=== PATIENT | male | born 1970 | race Caucasian/White ===

== ENCOUNTER 2022-10-21 16:56 | Emergency (ER) | payer MEDICAID ==
[~2022-10-21] VITALS: Ht 162.6 cm; Wt 63.6 kg
[2022-10-21 17:50] VITALS: BP 171/101; PULSE 79; RESP 16; TEMP 98.6; O2SAT 100
[2022-10-21] MEDS ORDERED: TETanus/Pertussis (Acell)/Diphther VAC/PF (Tdap-Adult) 0.5ml syringe IMVAC ONE (19:25)
[2022-10-21] MEDS ORDERED: SULF1TAB49 PO (19:26)
--- NOTE | 2022-10-21 19:41 | NUR ---
Pt with epsiode of vomiting. Zofran has been ordered. Pt repeatedly instructed to use emesis bag however, pt continue to vomit on the floor.
[2022-10-21] MEDS ORDERED: ondansetron 4mg rapidly disintigrating tab PO ONE (19:45)
--- NOTE | 2022-10-21 20:13 | NUR ---
[facility] called, 45 minute ETA.
== END 2022-10-21 20:16 | disposition home or self-care (01) ==
LOC: ER 16:56
DX: L02.611 Cutaneous abscess of right foot (principal); K21.9 Gastro-esophageal reflux disease without esophagitis; F17.200 Nicotine dependence, unspecified, uncomplicated
CPT/HCPCS: 10060; 87070; 90471; 90715; 99283; L4360; 87077; 87186

== ENCOUNTER 2024-01-18 12:31 | Emergency (ER) | payer MEDICAID ==
[~2024-01-18] VITALS: Ht 162.6 cm; Wt 81.1 kg
[2024-01-18] MEDS: normal saline 1000ML IV soln IV ONE (12:55)
[2024-01-18 14:04] LABS: ALBUMIN 2.9 G/DL (3.4-5.0); ANION GAP 6 (8-16); BLOOD UREA NITROGEN 13 MG/DL (7-18); BUN/CREATININE RATIO 12.4 (10.0-20.0); CALCIUM 8.3 MG/DL (8.5-10.1); CHLORIDE 105 MMOL/L (99-107); CREATININE 1.05 MG/DL (0.60-1.10); ETHANOL < 10 MG/DL (<10); GLUCOSE 135 MG/DL (70-104); POTASSIUM 4.2 MMOL/L (3.5-5.1); SODIUM 142 MMOL/L (135-145); TOTAL CARBON DIOXIDE 30.6 MMOL/L (24-32); eCRCL 68 ML/MIN; eGFR 74 ML/MIN
[2024-01-18 14:05] LABS: BASOPHILS % (AUTO) 0.3 % (0-1); EOSINOPHILS % (AUTO) 0.4 % (0-6); HEMATOCRIT 38.3 % (42.0-52.0); HEMOGLOBIN 12.5 g/dl (14.0-17.9); LYMPHOCYTES # (AUTO) 0.9 X10'3 (1.1-4.8); LYMPHOCYTES % (AUTO) 7.3 % (21-51); MEAN CORPUSCULAR HEMOGLOBIN 28.6 PG (27.0-31.0); MEAN CORPUSCULAR HGB CONC 32.8 g/dL (33.0-36.5); MEAN CORPUSCULAR VOLUME 87.4 FL (78-98); MEAN PLATELET VOLUME 7.2 FL (7.4-10.4); MONOCYTES # (AUTO) 0.4 X10'3 (0-0.9); MONOCYTES % (AUTO) 3.5 % (2-12); NEUTROPHILS # (AUTO) 11.3 X10'3 (1.8-7.7); NEUTROPHILS % (AUTO) 88.5 % (42-75); PLATELET COUNT 326 X10'3 (140-440); RED BLOOD COUNT 4.38 X10'6 (4.70-6.10); RED CELL DISTRIBUTION WIDTH 14.2 % (11.5-14.5); WHITE BLOOD COUNT 12.8 X10'3 (4.5-11.0)
[2024-01-18 15:24] VITALS: BP 111/70; PULSE 89; RESP 14; TEMP 98.1; O2SAT 98
== END 2024-01-18 15:27 | disposition home or self-care (01) ==
LOC: ER 12:31
DX: T40.2X1A Poisoning by other opioids, accidental (unintentional), initial encounter (principal); K21.9 Gastro-esophageal reflux disease without esophagitis; F17.200 Nicotine dependence, unspecified, uncomplicated; F15.90 Other stimulant use, unspecified, uncomplicated; Z72.89 Other problems related to lifestyle; Z98.890 Other specified postprocedural states; Y92.89 Other specified places as the place of occurrence of the external cause
CPT/HCPCS: 36415; 80048; 80320; 85025; 99283

== ENCOUNTER 2024-11-08 12:33 | Emergency (ER) | payer MEDICAID ==
[~2024-11-08] VITALS: Ht 162.6 cm; Wt 64.0 kg
[2024-11-08 12:34] VITALS: TEMP 98.4
--- NOTE | 2024-11-08 12:40 | ELECTROCARDIOGRAPH REPORT ---
[facility] Test Date: 2024-11-08 Test Time: 12:38:17 Pat Name: VARUN WESTBROOK Department: EMERGENCY ROOM [id number] Room: Gender: M Financial Agent: BARTOLO : 1970 Requested By: MARLI PURVIS Order Number: [id number] Reading MD: Measurements Intervals [place] Rate: 75 P: 52 CA: 107 QRS: 98 QRSD: 105 T: 58 QT: 408 QTc: 456 Interpretive Statements Sinus rhythm Short CA interval Borderline right axis deviation Left ventricular hypertrophy ST elev, probable normal early repol pattern Please click the below link to view image of tracing.
[2024-11-08 13:03] LABS: MEAN PLATELET VOLUME 6.9 FL (7.4-10.4); RED CELL DISTRIBUTION WIDTH 15.4 % (11.5-14.5)
[2024-11-08 13:12] LABS: CREATININE 0.73 MG/DL (0.60-1.10); TOTAL CARBON DIOXIDE 32.4 MMOL/L (24-32); eCRCL 97 ML/MIN; eGFR > 90 ML/MIN
[2024-11-08] MEDS: normal saline 1000ml 1,000 ML IV ONE (13:40)
--- NOTE | 2024-11-08 13:43 | Physician Documentation ---
History of Present Illness ~ Chief Complaint: Overdose Stated Complaint: FENTANYL USE Time Seen by MD: 12:42 Primary Medical Doctor: None Source: patient Mode of Arrival: POV, EMS, Stretcher Exam Limitations: no limitations HPI Patient brought in by EMS. He was found outside of a grocery store by passersby and he was not responding. He was given Narcan and now is awake but lethargic. 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 He states he does both of them every day. He is interested in going to detox and getting clean. Denies any other medical problems. Smokes cigarettes when he can get them. No significant alcohol use. States that today he use the normal amount of drugs that he does every day. He was not trying to hurt himself. Medication Reconciliation Allergies: Coded Allergies: No Known Allergies (Unverified , 01/25/14) Past Medical History Past Medical History: GERD Past Surgical History: other Other Past Surgical History: Cauterization Alcohol Use: Occasionally Drug Use: none Lives with: Family Lives In: Home Occupation: employed Review of Systems All Other Systems at this time: Reviewed and Negative Physical Exam Vital Signs: Temperature: 98.4, Source: Oral, Heart Rate: 70, Respiratory Rate: 16, BP: 122/83, Pulse Oximetry: 98, Weight: 64.000 Oxygen Flow Rate: 0 General Appearance: other (Somnolent) Pupils/EOM/Fundus: PERRLA Gag present: Yes Head: normal inspection Neck: normal inspection, full range of motion Respiratory: lungs clear, normal breath sounds, no respiratory distress Chest: no accessory muscle use Cardiovascular: regular rate, rhythm, no edema Gastrointestinal: normal palpation, non-tender Extremities: non-tender Neurologic: oriented x4 Cerebellar function exam: normal Motor / Sensory: no motor deficit, no sensory deficit Appearance/Memory/Insight: disheveled, other (Dirt all over his clothes) Thought/Hallucinations: no apparent hallucination Affect: quiet Skin: normal color, warm/dry Progress Results/Orders Results/Orders Orders - MARLI PURVIS MD Substance Use Navigator (11/08/24 12:45) Electrocardiogram (11/08/24 12:45) Completed Orders - MARLI PURVIS MD Electrocardiogram (11/08/24 12:37) Cbc/Diff (11/08/24 12:45) BMP (11/08/24 12:45) Hs Troponin I W Calculations (11/08/24 12:45) Drug Screen, Urine (11/08/24 12:47) Normal Saline 1000ml (0.9% Sodium Chlori (11/08/24 12:45) Medications Received in ER Medications (Trade) Dose Ordered Sig/Micaela Route PRN Reason Start Time Stop Time Status Last Admin Dose Admin Sodium Chloride 1,000 ml @ 1,000 mls/hr ONCE ONCE IV 11/08/24 12:45 11/08/24 13:44 DC 11/08/24 13:40 1,000 MLS/HR Vital Signs 11/08/24 11/08/24 11/08/24 11/08/24 12:34 12:38 13:39 14:45 Temp 98.4 Pulse 75 70 78 Resp 16 16 16 16 B/P (MAP) 146/91 122/83 (96) 159/100 (119) Pulse Ox 95 98 99 O2 Flow Rate 0 11/08/24 11/08/24 15:41 17:39 Pulse 62 74 Resp 17 16 B/P (MAP) 154/102 (119) 151/96 Pulse Ox 98 98 O2 Flow Rate 0 Laboratory Tests Test 11/08/24 12:55 11/08/24 15:15 White Blood Count 9.1 Red Blood Count 4.49 L Hemoglobin 12.8 L Hematocrit 38.3 L Mean Corpuscular Volume 85.4 Mean Corpuscular Hemoglobin 28.5 Mean Corpuscular Hemoglobin Concent 33.4 Red Cell Distribution Width 15.4 H Platelet Count 231 Mean Platelet Volume 6.9 L Neutrophils (%) (Auto) 79.8 H Lymphocytes (%) (Auto) 12.0 L Monocytes (%) (Auto) 6.2 Eosinophils (%) (Auto) 1.7 Basophils (%) (Auto) 0.3 Neutrophils # (Auto) 7.3 Lymphocytes # (Auto) 1.1 Monocytes # (Auto) 0.6 Eosinophils # (Auto) 0.2 Basophils # (Auto) 0.0 CBC Comment Sodium Level 140 Potassium Level 3.6 Chloride Level 105 Carbon Dioxide Level 32.4 H Anion Gap 3 L Blood Urea Nitrogen 13 Creatinine 0.73 Estimated GFR/1.73 m2 > 90 BUN/Creatinine Ratio 17.8 Glucose Level 105 H Calcium Level 8.5 Troponin I High Sensitivity 12 Albumin 3.1 L Chemistry Comments Urine Opiates Screen Negative Urine Methadone Screen Negative Urine Fentanyl Screen Positive H Urine Barbiturates Screen Negative Urine Phencyclidine Screen Negative Urine Amphetamines Screen Positive Urine Benzodiazepines Screen Negative Urine Cocaine Screen Negative Urine Cannabinoids Screen Negative Drug Screen Comment Medical Decision Making Additional Comment Patient was monitored in the ER for many hours with no changes. Resting comfortably. Alert when awakened. Labs unremarkable. We did attempt to get him a counselor in the ER that could help him find detox but they were aroldo vailable today. Did give literature. Recommend follow up PCP and detox. Discharged home in good condition. Return here if new or worsening symptoms. Departure Impression: Primary Impression: Fentanyl poisoning Qualified Codes: T40.411A - Poisoning by fentanyl or fentanyl analogs, accidental (unintentional), initial encounter Condition: Improved Discharge Instructions: Opioid Overdose Additional Instructions: Follow up with your doctor and seek addiction care. Return here if new or worsening symptoms. Referrals: NO PRIMARY CARE PROVIDER (PCP) Education Educated: Patient Educated regarding: diagnosis, treatment, prognosis, need for follow up Signature Scribe Signature: No scribe used Attestation: No scribe used MARLI PURVIS MD Nov 08, 2024 13:43
[2024-11-08 15:41] LABS: URINE AMPHETAMINE SCREEN POSITIVE (Neg); URINE BARBITUATE SCREEN NEGATIVE (Neg); URINE BENZODIAZEPINES SCREEN NEGATIVE (Neg); URINE CANNABINOID SCREEN NEGATIVE (Neg); URINE COCAINE SCREEN NEGATIVE (Neg); URINE METHADONE SCREEN NEGATIVE (Neg); URINE OPIATE SCREEN NEGATIVE (Neg); URINE PHENCYCLIDINE SCREEN NEGATIVE (Neg)
[2024-11-08 17:39] VITALS: BP 151/96; PULSE 74; RESP 16; O2SAT 98
== END 2024-11-08 18:09 | disposition home or self-care (01) ==
LOC: ER 12:34
DX: T40.411A Poisoning by fentanyl or fentanyl analogs, accidental (unintentional), initial encounter (principal); R53.83 Other fatigue; F17.210 Nicotine dependence, cigarettes, uncomplicated; K21.9 Gastro-esophageal reflux disease without esophagitis; Z72.89 Other problems related to lifestyle; Y92.89 Other specified places as the place of occurrence of the external cause
CPT/HCPCS: 36415; 80048; 80305; 84484; 85025; 93005; 96360; 99285; J7030